=== PATIENT | female | born 1950 | race African-American/Black ===

== ENCOUNTER 2017-06-27 16:48 | Inpatient (IN) | payer OTHER, MEDICAID ==
[~2017-06-27] VITALS: Ht 162.6 cm; Wt 90.7 kg
[~2017-06-27 16:48] MED LIST: ACET250T3 PO; ALBUTEROL SULFATE; BENZ2TAB7 PO; CLOTRIMAZOLE; DICY10SO PO; FLUT1DIS3 IH; FURO-151 PO; HYDR-4135 PO; IPRA3AMP IH; LOSA100T14 PO; METO25TA6 PO; MIRT7.5T11 PO; OMEP20CA10 PO; P20 PO; QUET25TA34 PO; RISP2 PO; RISP3 PO; VIAG50 PO; [UNRECOGNIZED DRUG - OTHER]
[2017-06-27 17:56] LABS: BASOPHILS % 0.3 % (0.0-2.0); EOSINOPHILS % 0.1 % (0.0-5.0); HEMOGLOBIN. 10.3 g/dL (12.0-16.0); LYMPHOCYTES % 7.2 % (20.0-50.0); MEAN CORPUSCULAR HEMOGLOBIN 26.1 pg (28.0-32.0); MEAN CORPUSCULAR VOLUME 83.6 fL (81.0-99.0); MONOCYTES % 3.6 % (2.0-8.0); NEUTROPHILS % 88.8 % (40.0-76.0); PLATELET 211 x1000/uL (130-400); RED BLOOD CELL COUNT 3.95 mill/uL (4.2-5.4); RED CELL DISTRIBUTION WIDTH 16.3 % (11.6-14.6)
[2017-06-27 18:00] LABS: CHLORIDE 96 mEq/L (98-107)
[2017-06-27] MEDS ORDERED: LEVETIRACETAM 500MG PREMIX 100 ML IV ONE (18:00)
[2017-06-27 18:01] LABS: CLARITY URINE CLEAR (CLEAR); COLOR URINE YELLOW (YELLOW); GLUCOSE URINE NEGATIVE (NEGATIVE); KETONES URINE NEGATIVE (NEGATIVE); LEUKOCYTE ESTERASE URINE 2+ (NEGATIVE); NITRITE URINE NEGATIVE (NEGATIVE); OCCULT BLOOD URINE TRACE (NEGATIVE); PROTEIN URINE 1+ (NEGATIVE); SPECIFIC GRAVITY URINE 1.014 (1.005-1.030); UROBILINOGEN URINE 0.2 E.U./dL (0.2-1.0)
[2017-06-27 18:04] LABS: CARBON DIOXIDE 37 mEq/L (21-32)
[2017-06-27 18:05] LABS: AMMONIA 41 uMol/L (<32); INR 1.1; PARTIAL THROMBOPLASTIN TIME 25.9 sec (24.0-34.0); PROTHROMBIN TIME 11.4 sec
[2017-06-27 18:11] LABS: CREATINE KINASE 113 IU/L (26-192); TROPONIN I < 0.02 ng/mL (0.00-0.04)
[2017-06-27] MEDS ORDERED: CEFTRIAXONE 1 G PREMIX 50 ML IV ONE (18:15)
[2017-06-27] MEDS ORDERED: FUROSEMIDE 20MG/2ML VIAL IVP ONE (18:30)
[2017-06-27 20:53] LABS: BG BASE EXCESS 2.7 mmol/L (-2.0-2.0); BG CARBOXYHEMOGLOBIN 0.3 % (0.5-1.5); BG DEOXYHEMOGLOBIN 9.1 % (0.0-5.0); BG FRACTION INSPIRED OXYGEN 36; BG HCO3 ACT 30.8 mmol/L (22.0-26.0); BG METHEMOGLOBIN 0.4 % (0.0-1.5); BG OXYGEN SATURATION 90.8 % (92.0-98.5); BG OXYHEMOGLOBIN 90.2 % (94.0-97.0); BG PCO2 66.6 mmHg (35.0-45.0); BG PH 7.283 (7.350-7.450); BG PO2 65.3 mmHg (75.0-100.0); BG SAMPLE SITE RIGHT RADIAL; BG TOTAL HEMOGLOBIN 11.5 g/dL (12.0-18.0); BG VENT MODE NASAL CANNULA
[2017-06-27] MEDS ORDERED: ACET250T3 PO (21:50)
[2017-06-27] MEDS ORDERED: SERT25TA74 PO (21:50)
[2017-06-27] MEDS ORDERED: ACET-2178 PO (21:50)
[2017-06-27] MEDS ORDERED: TIOT18CA3 IH (21:50)
[2017-06-27] MEDS ORDERED: ATOR40TA70 PO (21:50)
[2017-06-27] MEDS ORDERED: BUDE0.25 NEB (21:50)
[2017-06-27] MEDS ORDERED: LORAZEPAM 2MG/ML CPJ IV PRN (22:15)
[2017-06-27] MEDS ORDERED: ONDANSETRON HCL 4MG/2ML VIAL IV PRN (22:15)
[2017-06-27] MEDS ORDERED: HYDRALAZINE 20MG/ML VIAL IV PRN (22:15)
[2017-06-27 22:57] VITALS: BP 169/76
[2017-06-27] MEDS ORDERED: MORPHINE SULFATE 2 MG/ML CPJ (NOT FOR IM USE) IV PRN (23:00)
[2017-06-28] VITALS (28 sets, daily range): BP systolic 90–189; BP diastolic 37–88
[2017-06-28] MEDS: IPRATROPIUM/ALBUTEROL 0.5-3(2.5)MG/3ML NEB INH SCH ×4 (02:22→20:11)
[2017-06-28 02:37] LABS: *AMPHETAMINES SCREEN URINE NEGATIVE (NEGATIVE); *BARBITURATES SCREEN URINE NEGATIVE (NEGATIVE); *BENZODIAZEPINES SCREEN URINE PRESUMTIVE POSITIVE (NEGATIVE); *COCAINE SCREEN URINE NEGATIVE (NEGATIVE); CANNABINOID URINE SCREEN NEGATIVE (NEGATIVE); OPIATES URINE SCREEN NEGATIVE (NEGATIVE); PHENCYCLIDINE URINE SCREEN NEGATIVE (NEGATIVE)
[2017-06-28 02:55] LABS: METHADONE URINE SCREEN NEGATIVE (NEGATIVE)
[2017-06-28] MEDS ORDERED: ENALAPRIL 1.25MG/ML VIAL 1ML IV PRN (06:15)
[2017-06-28 06:30] LABS: HEMATOCRIT. 31.6 % (36.0-48.0); MEAN CORPUSCULAR HEMOGLOBIN 26.1 pg (28.0-32.0); MEAN CORPUSCULAR VOLUME 82.7 fL (81.0-99.0); MEAN PLATELET VOLUME 8.1 fl (7.4-10.4); PLATELET 215 x1000/uL (130-400); RED BLOOD CELL COUNT 3.81 mill/uL (4.2-5.4); RED CELL DISTRIBUTION WIDTH 16.2 % (11.6-14.6)
[2017-06-28 06:57] LABS: AMMONIA 33 uMol/L (<32)
[2017-06-28 07:08] LABS: CARBON DIOXIDE 35 mEq/L (21-32); CHLORIDE 96 mEq/L (98-107)
[2017-06-28 07:09] LABS: TOTAL IRON BINDING CAPACITY 275 ug/dL (250-450)
[2017-06-28 07:58] LABS: BG BASE EXCESS 9.1 mmol/L (-2.0-2.0); BG BILEVEL POS AIRWAY PRESSURE 15/5; BG CARBOXYHEMOGLOBIN 0.1 % (0.5-1.5); BG DEOXYHEMOGLOBIN 14.4 % (0.0-5.0); BG FRACTION INSPIRED OXYGEN 30; BG METHEMOGLOBIN 0.4 % (0.0-1.5); BG OXYGEN SATURATION 85.5 % (92.0-98.5); BG OXYHEMOGLOBIN 85.1 % (94.0-97.0); BG PCO2 81.1 mmHg (35.0-45.0); BG PH 7.289 (7.350-7.450); BG PO2 56.3 mmHg (75.0-100.0); BG SAMPLE SITE RIGHT RADIAL; BG TOTAL HEMOGLOBIN 10.8 g/dL (12.0-18.0); BG VENT MODE MASK - BIPAP; BG VENT RATE 16 set
[2017-06-28] MEDS: LEVETIRACETAM 500 MG in SODIUM CHLORIDE 0.9% 100 ML IV SCH ×2 (09:37→21:04)
[2017-06-28] MEDS: CEFTRIAXONE 1 G PREMIX 50 ML IV SCH (09:37)
[2017-06-28] MEDS: PANTOPRAZOLE SODIUM 40 MG/VIAL IV SCH (09:37)
[2017-06-28] MEDS ORDERED: MAGNESIUM 2 G PREMIX 50 ML IV ONE (09:45)
[2017-06-28] MEDS ORDERED: IPRATROPIUM/ALBUTEROL 0.5-3(2.5)MG/3ML NEB HHN PRN (10:00)
[2017-06-28] MEDS ORDERED: MAGNESIUM 1 G PREMIX 100 ML IV SCH (10:00)
[2017-06-28] MEDS ORDERED: MAGNESIUM 1 G PREMIX 100 ML IV NR (10:00)
[2017-06-28] MEDS ORDERED: AMLODIPINE 2.5MG TABLET PO SCH (11:15)
[2017-06-28] MEDS: METHYLPREDNISOLONE SOD SUCC 125 MG/2 ML VIAL IV SCH ×2 (12:57→21:04)
[2017-06-28] MEDS: BUDESONIDE 0.5MG/2ML NEB HHN SCH ×2 (13:35→20:11)
[2017-06-28 14:58] LABS: BG BILEVEL POS AIRWAY PRESSURE ST=18/5; BG CARBOXYHEMOGLOBIN 0.3 % (0.5-1.5); BG DEOXYHEMOGLOBIN 3.1 % (0.0-5.0); BG FRACTION INSPIRED OXYGEN 50; BG HCO3 ACT 29.5 mmol/L (22.0-26.0); BG METHEMOGLOBIN 0.5 % (0.0-1.5); BG OXYGEN SATURATION 96.9 % (92.0-98.5); BG OXYHEMOGLOBIN 96.1 % (94.0-97.0); BG PCO2 60.9 mmHg (35.0-45.0); BG PH 7.303 (7.350-7.450); BG PO2 98.2 mmHg (75.0-100.0); BG PRESSURE SUPPORT 13; BG SAMPLE SITE LEFT BRACHIAL; BG TOTAL HEMOGLOBIN 11.1 g/dL (12.0-18.0); BG VENT MODE MASK - BIPAP; BG VENT RATE 24 set
[2017-06-28] MEDS: DEXT 5%/0.45% NACL 1000ML 1,000 ML IV SCH (15:22)
[2017-06-28 17:41] LABS: PLATELET ESTIMATE NORMAL
[2017-06-28] MEDS: MORPHINE SULFATE 2 MG/ML CPJ (NOT FOR IM USE) IV PRN ×2 (18:18→20:02)
[2017-06-28] MEDS ORDERED: CEFTRIAXONE 1 G PREMIX 50 ML IV SCH (19:00)
[2017-06-28] MEDS ORDERED: PHENYTOIN SODIUM 1,000 MG in SODIUM CHLORIDE 0.9% 100 ML IV NR (19:30)
[2017-06-29] VITALS (28 sets, daily range): BP systolic 105–151; BP diastolic 44–71
[2017-06-29] MEDS: IPRATROPIUM/ALBUTEROL 0.5-3(2.5)MG/3ML NEB INH SCH ×4 (01:41→20:11)
[2017-06-29 05:32] LABS: HEMATOCRIT. 30.7 % (36.0-48.0); HEMOGLOBIN. 9.7 g/dL (12.0-16.0); MEAN CORPUSCULAR HEMOGLOBIN 26.1 pg (28.0-32.0); MEAN CORPUSCULAR VOLUME 82.5 fL (81.0-99.0); MEAN PLATELET VOLUME 8.3 fl (7.4-10.4); PLATELET 210 x1000/uL (130-400); RED BLOOD CELL COUNT 3.72 mill/uL (4.2-5.4)
[2017-06-29] MEDS: METHYLPREDNISOLONE SOD SUCC 125 MG/2 ML VIAL IV SCH (05:44)
[2017-06-29 05:45] LABS: PHENYTOIN 8.5 ug/mL (10-20)
[2017-06-29 08:19] LABS: BG BASE EXCESS 8.2 mmol/L (-2.0-2.0); BG CARBOXYHEMOGLOBIN 0.3 % (0.5-1.5); BG DEOXYHEMOGLOBIN 5.5 % (0.0-5.0); BG FRACTION INSPIRED OXYGEN 50; BG HCO3 ACT 34.3 mmol/L (22.0-26.0); BG METHEMOGLOBIN 0.5 % (0.0-1.5); BG OXYGEN SATURATION 94.5 % (92.0-98.5); BG OXYHEMOGLOBIN 93.7 % (94.0-97.0); BG PCO2 55.4 mmHg (35.0-45.0); BG SAMPLE SITE RIGHT BRACHIAL; BG TOTAL HEMOGLOBIN 11.1 g/dL (12.0-18.0); BG VENT MODE MASK - VENTI
[2017-06-29] MEDS: PANTOPRAZOLE SODIUM 40 MG/VIAL IV SCH (08:28)
[2017-06-29] MEDS: CEFTRIAXONE 1 G PREMIX 50 ML IV SCH (08:30)
[2017-06-29] MEDS: LEVETIRACETAM 500 MG in SODIUM CHLORIDE 0.9% 100 ML IV SCH (08:30)
[2017-06-29] MEDS: MORPHINE SULFATE 2 MG/ML CPJ (NOT FOR IM USE) IV PRN ×3 (08:56→17:27)
[2017-06-29] MEDS ORDERED: METHYLPREDNISOLONE SOD SUCC 40 MG/ML VIAL IV SCH (09:00)
[2017-06-29 09:30] LABS: PLATELET ESTIMATE NORMAL
[2017-06-29] MEDS: BUDESONIDE 0.5MG/2ML NEB HHN SCH ×2 (09:45→20:08)
[2017-06-29] MEDS ORDERED: IRON SUCROSE COMPLEX 100 MG/5 ML ML IV SCH (10:00)
[2017-06-29] MEDS: DEXT 5%/0.45% NACL 1000ML 1,000 ML IV SCH (12:30)
[2017-06-29] MEDS ORDERED: MORPHINE SULFATE 2 MG/ML CPJ (NOT FOR IM USE) IV PRN (14:00)
[2017-06-29 17:30] LABS: BG BASE EXCESS 9.3 mmol/L (-2.0-2.0); BG CARBOXYHEMOGLOBIN 0.3 % (0.5-1.5); BG DEOXYHEMOGLOBIN 13.8 % (0.0-5.0); BG FRACTION INSPIRED OXYGEN 40; BG HCO3 ACT 34.9 mmol/L (22.0-26.0); BG METHEMOGLOBIN 0.3 % (0.0-1.5); BG OXYGEN SATURATION 86.1 % (92.0-98.5); BG OXYHEMOGLOBIN 85.6 % (94.0-97.0); BG PCO2 52.8 mmHg (35.0-45.0); BG PH 7.438 (7.350-7.450); BG PO2 51.1 mmHg (75.0-100.0); BG SAMPLE SITE RIGHT RADIAL; BG TOTAL HEMOGLOBIN 10.7 g/dL (12.0-18.0); BG VENT MODE MASK - VENTI
[2017-06-29] MEDS ORDERED: PHENYTOIN SODIUM 500 MG in SODIUM CHLORIDE 0.9% 100 ML IV NR (18:00)
[2017-06-29] MEDS ORDERED: PHENYTOIN SODIUM 100MG/2ML VIAL IV SCH (21:00)
[2017-06-30] MEDS ORDERED: PHENYTOIN SODIUM 300MG in SODIUM CHLORIDE 0.9% 50ML IV SCH (21:00)
== END 2017-06-29 21:00 | disposition short-term general hospital (02) | DRG 871 ==
LOC: ER 16:48 → 6WST 17:54 → EDBEDREQ 18:06 → ENRESERV 18:54 → 5EST 06-28 08:31 → CVICU 06-28 08:49
PROVIDERS: ADMIT Family Medicine Adult Medicine; ATTEND Family Medicine Adult Medicine
PROC: 5A09457 Assistance with Respiratory Ventilation, 24-96 Consecutive Hours, Continuous Positive Airway Pressure (ICD-10-PCS; principal; 2017-06-27)
PROC: 02HV33Z Insertion of Infusion Device into Superior Vena Cava, Percutaneous Approach (ICD-10-PCS; 2017-06-28)
PROC: B548ZZA Ultrasonography of Superior Vena Cava, Guidance (ICD-10-PCS; 2017-06-28)
DX: A41.9 Sepsis, unspecified organism (principal); G92 Toxic encephalopathy; J96.21 Acute and chronic respiratory failure with hypoxia; J96.22 Acute and chronic respiratory failure with hypercapnia; I63.9 Cerebral infarction, unspecified; J18.9 Pneumonia, unspecified organism; N39.0 Urinary tract infection, site not specified; J44.1 Chronic obstructive pulmonary disease with (acute) exacerbation; E72.20 Disorder of urea cycle metabolism, unspecified; E87.2 Acidosis; F20.0 Paranoid schizophrenia; J44.0 Chronic obstructive pulmonary disease with (acute) lower respiratory infection; Z51.5 Encounter for palliative care; I50.9 Heart failure, unspecified; I11.0 Hypertensive heart disease with heart failure; D64.9 Anemia, unspecified; E03.9 Hypothyroidism, unspecified; E83.42 Hypomagnesemia; I27.2 Other secondary pulmonary hypertension; K21.9 Gastro-esophageal reflux disease without esophagitis; G40.409 Other generalized epilepsy and epileptic syndromes, not intractable, without status epilepticus; M19.90 Unspecified osteoarthritis, unspecified site; T38.0X5A Adverse effect of glucocorticoids and synthetic analogues, initial encounter; Z99.81 Dependence on supplemental oxygen; Z88.1 Allergy status to other antibiotic agents; Z79.899 Other long term (current) drug therapy; Y92.89 Other specified places as the place of occurrence of the external cause
CPT/HCPCS: 36415; 36569; 36600; 51702; 70450; 70551; 71010; 76937; 80048; 80053; 80185; 80305; 81001; 82140; 82375; 82550; 82805; 82962; 83540; 83550; 83735; 83880; 84443; 84484; 85025; 85610; 85730; 87077; 87086; 87186; 92610; 93005; 93306; 93880; 93970; 94640; 94660; 94664; 96365; 96375; 97162; 97167; 99291; C1725; C9113; J0360; J0696; J1165; J1940; J1953; J2270; J2405; J2920; J2930; J3475; J3490; J7050; J7620; J7626; A4315